=== PATIENT | male | born 1990 | race Two or more races ===

== ENCOUNTER 2020-09-08 23:06 | Emergency (ER) | payer MEDICAID ==
[~2020-09-08] VITALS: Ht 170.2 cm; Wt 85.0 kg
--- NOTE | 2020-09-08 23:30 | NUR ---
DR. ORO TO BS TO EVAL PT. AND DISCUSS POC WITH PT. AND MOTHER. PT. CONTINUES TO BE UNCOOPERATIVE WITH ASSESSMENT. PT. CONTINUALLY LOOKING AROUND ROOM AND APPEARS PARANOID.
[2020-09-08 23:45] LABS: ALANINE AMINOTRANSFERASE 26 U/L (12-78); ALBUMIN 4.4 g/dL (3.4-5.0); ANION GAP 10 mmol/L (5-15); CALCIUM 9.3 mg/dL (8.5-10.1); CHLORIDE 104 mmol/L (98-107); CREATININE 1.15 mg/dL (0.7-1.3)
[2020-09-08 23:47] LABS: ALKALINE PHOSPHATASE 81 U/L (45-117); BILIRUBIN,TOTAL 1.1 mg/dL (0.2-1.0); SALICYLATE LEVEL < 1.7 mg/dL (2.8-20.0); TOTAL PROTEIN 8.5 g/dL (6.4-8.2)
[2020-09-08 23:55] LABS: BASOPHILS % (AUTO) 1 % (0-1); EOSINOPHILS % (AUTO) 0 % (1-7); LYMPHOCYTES % (AUTO) 15 % (22-44); MEAN CORPUSCULAR HEMOGLOBIN 32.7 pg (27.5-34.5); MEAN CORPUSCULAR HGB CONC 35.2 g/dL (33.2-36.2); MEAN PLATELET VOLUME 8.9 fL (7.4-10.4); MONOCYTES % (AUTO) 10 % (2-9); NEUTROPHILS % (AUTO) 74 % (42-75); PLATELET COUNT 374 x10^3/uL (130-400); RED BLOOD COUNT 5.37 x10^6/uL (4.38-5.82); RED CELL DISTRIBUTION WIDTH 12.3 % (9.4-14.8)
[2020-09-09 00:17] LABS: MD SCAN
--- NOTE | 2020-09-09 00:17 | NUR ---
Assist RN: urine collected and sent to lab.
[2020-09-09 00:41] LABS: AMPHETAMINE SCREEN, URINE Negative (Negative); BARBITURATE SCREEN, URINE Negative (Negative); BENZODIAZEPINE SCREEN, URINE Negative (Negative); CANNABINOID SCREEN, URINE Positive (Negative); COCAINE SCREEN, URINE Negative (Negative); METHADONE SCREEN, URINE Negative (Negative); OPIATE SCREEN, URINE Negative (Negative)
--- NOTE | 2020-09-09 00:50 | NUR ---
PT. CONTINUES RESTING ON GURNEY, STARING OFF AND CONTINUES TO REFUSE TO ANSWER QUESTIONS. MOTHER REMAINS AT FOR SUPPORT. CALLED [facility] TO ASK IF THEY WERE ACCEPTING PT. FOR INPATIENT; NEED UDS RESULTS PRIOR TO ANSWER; WILL CALL BACK WHEN RESULTED.
--- NOTE | 2020-09-09 00:56 | NUR ---
[facility] REPORTED NO BEDS AT THIS TIME, ALSO PT. HAS [employer] INSURANCE WHICH IS NOT ACCEPTED.
--- NOTE | 2020-09-09 01:08 | NUR ---
BS REPORT TO BOYD BARTON. CALLED BACK TO [facility] ABOUT ACCEPTING PT.; PACKET TO BE FAXED WHEN MD PAPERWORK COMPLETED. ROOM SECURED. MOTHER TAKING ALL PT. BELONGING HOME WITH HER.
--- NOTE | 2020-09-09 01:17 | NUR ---
REPORT FROM [facility] ASSUMED CARE OF PT AT THIS TIME , PTS MOM AT BS AT THIS TIME, PT CONTINUES TO NOT ANSWER QUESTIONS OR TALK, SANDWICH GIVEN PER MOMS REQUEST AND CHIPS. POC DISCUSSED WITH MOM AND PT AT THIS TIME, ROOM SECURE ALL PT BELONGINGS WITH MOM. TO BE TAKEN HOME WITH HER, PT AWARE.
--- NOTE | 2020-09-09 01:18 | NUR ---
TP RN: Packet faxed to [facility] and [facility].
[2020-09-09] MEDS ORDERED: CITA10TA8 PO (01:27)
[2020-09-09] MEDS ORDERED: TRAZ50TA66 PO (01:27)
--- NOTE | 2020-09-09 01:37 | NUR ---
MOM LEFT SITTER AT DOOR OF ROOM, ROOM SECURE
--- NOTE | 2020-09-09 01:49 | NUR ---
REPORT TO [facility] AT THIS TIME
--- NOTE | 2020-09-09 02:02 | NUR ---
[facility] ACCEPTED PATEINJayce ESCUDERO TO PICK PATIENT UP AT 0230 FROM [facility].
--- NOTE | 2020-09-09 02:45 | NUR ---
[facility] IS HERE TO TRANSPORT PATIENT TO [facility].
[2020-09-09 02:51] VITALS: BP 144/82
== END 2020-09-09 02:54 ==
LOC: ED 23:39
DX: F33.3 Major depressive disorder, recurrent, severe with psychotic symptoms (principal)
CPT/HCPCS: 36415; 80053; 80299; 80307; 80320; 80329; 85025; 99285; G0480